=== PATIENT | male | born 1985 | race Caucasian/White ===

== ENCOUNTER 2021-09-11 10:37 | Emergency (ER) | payer OTHER ==
[~2021-09-11] VITALS: Ht 182.9 cm; Wt 81.7 kg
[2021-09-11] MEDS ORDERED: TRAZODONE HCL50 MG PO (12:17)
== END 2021-09-11 12:20 | disposition home or self-care (01) ==
LOC: ED 10:37
DX: F41.9 Anxiety disorder, unspecified (principal); G89.29 Other chronic pain; M54.9 Dorsalgia, unspecified; Z79.899 Other long term (current) drug therapy
CPT/HCPCS: 99283